=== PATIENT | female | born 1975 | race American Indian/Alaskan Native ===

== ENCOUNTER 2016-11-18 16:26 | Emergency (ER) | payer SELFPAY ==
[2016-11-18 17:47] LABS: Anion Gap 20 mmol/L; Blood Urea Nitrogen 8 mg/dL (7-17); Calcium 9.1 mg/dL (8.4-10.2); Carbon Dioxide 24 mmol/L (22-30); Chloride 102.5 mmol/L (98-107); Glucose 104 mg/dL (65-100); Potassium 4.5 mmol/L (3.6-5.0); Sodium 142 mmol/L (137-145)
[2016-11-18 17:59] LABS: Bilirubin,Urine NEG (Negative); Blood,Urine MOD (Negative); Ketones,Urine NEG (Negative); Leukocyte Esterase,Urine SM (Negative); Mucus,Urine 3+ /HPF; Nitrite,Urine NEG (Negative); Urobilinogen,Urine < 2.0 mg/dL (<2.0)
[2016-11-18 18:05] LABS: Basophils % (Auto) 0.9 % (0.0-1.8); Eosinophils % (Auto) 1.9 % (0.0-4.3); Hematocrit 41.8 % (30.3-42.9); Hemoglobin 13.9 gm/dl (10.1-14.3); Mean Corpuscular HGB Conc 33 % (30-34); Mean Corpuscular Hemoglobin 29 pg (28-32); Mean Corpuscular Volume 88 fl (79-97); Platelet Count 268 K/mm3 (140-440); Red Blood Count 4.73 M/mm3 (3.65-5.03); White Blood Count 6.3 K/mm3 (4.5-11.0)
--- NOTE | 2016-11-18 22:58 | Emergency Department Report ---
HPI - General Chief Complaint: Nausea/Vomiting/Diarrhea Time Seen by Provider: 11/18/16 22:10 - HPI HPI: This is a 41 year-old female presents to the emergency department with complaint of feeling dizzy with some [id number] symptoms. The past few days the patient has been having some "cold" symptoms and was concerned and she says that most of the people in her office have been sick. She also says that she had a fever yesterday but has been treating herself with Tylenol and Motrin. However the reason she came in today was because she was driving earlier and felt like she was going to pass out, but never did so. She does not have any past history. She does not have a primary care physician. She denies any headache, vision change, slurred speech, chest pain, shortness of breath. Secondarily, the patient is concerned as she says that she had unprotected sex with a new partner about one month ago. She has some intermittent vaginal discharge but denies any vaginal bleeding. She says that she's been having some mild dysuria and feels like she is not urinating as much as usual. ED Past Medical Hx - Past Medical History Previous Medical History?: No - Surgical History Past Surgical History?: Yes Additional Surgical History: C/S - Social History Smoking Status: Current Every Day Smoker Substance Use Type: Alcohol, Marijuana - Medications Home Medications: Home Medications Medication Instructions Recorded Confirmed Last Taken Type Nitrofurantoin Walker/M-Cryst 100 mg PO Q12HR #14 capsule 11/19/16 Unknown Rx [Macrobid CAP] metroNIDAZOLE [Flagyl TAB] 500 mg PO BID #14 tablet 11/19/16 Unknown Rx ED Review of Systems ROS: Stated complaint: FEVER,DIZZY Other details as noted in HPI Comment: All other systems reviewed and negative Constitutional: fever. denies: weakness Eyes: denies: eye pain, eye discharge, vision change ENT: denies: ear pain, throat pain Respiratory: cough. denies: shortness of breath Cardiovascular: denies: chest pain, palpitations Gastrointestinal: denies: abdominal pain, constipation Genitourinary: dysuria, discharge. denies: hematuria Musculoskeletal: denies: joint swelling, arthralgia Skin: denies: rash, lesions Neurological: denies: headache, numbness Physical Exam - Physical Exam Vital Signs: Vital Signs 11/18/16 11/18/16 11/18/16 16:48 20:22 22:23 Temperature 98.6 F 97.5 F L 97.6 F Pulse Rate 83 86 84 Respiratory 16 20 20 Rate Blood Pressure 121/69 134/92 Blood Pressure 119/77 [Left] O2 Sat by Pulse 98 99 99 Oximetry Physical Exam: GENERAL: The patient is well-developed well-nourished. HENT: Normocephalic. Atraumatic. Patient has moist mucous membranes. Oropharynx is clear without tonsillar hypertrophy, erythema or exudates. EYES: Extraocular motions are intact. Pupils equal reactive to light bilaterally. No nystagmus. NECK: Supple. Trachea is midline. CHEST/LUNGS: Clear to auscultation. No cough heard during examination. No tachypnea or accessory muscle use. There is no respiratory distress noted. HEART/CARDIOVASCULAR: Regular. There is no tachycardia. There is no gallop rub or murmur. ABDOMEN: Abdomen is soft, nontender. Patient has normal bowel sounds. There is no abdominal distention. SKIN: Skin is warm and dry. NEURO: The patient is awake, alert, and oriented. The patient is cooperative. The patient has no focal neurologic deficits. The patient has normal speech and gait. MUSCULOSKELETAL: There is no tenderness or deformity. There is no limitation range of motion. There is no evidence of acute injury. : There is a small amount of thin white malodorous discharge seen in the vaginal vault. ED Course Vital Signs 11/18/16 11/18/16 11/18/16 16:48 20:22 22:23 Temperature 98.6 F 97.5 F L 97.6 F Pulse Rate 83 86 84 Respiratory 16 20 20 Rate Blood Pressure 121/69 134/92 Blood Pressure 119/77 [Left] O2 Sat by Pulse 98 99 99 Oximetry ED Medical Decision Making - Lab Data Result diagrams: 11/18/16 17:07 11/18/16 17:07 - EKG Data -: EKG Interpreted by Me EKG shows normal: sinus rhythm, axis, intervals, QRS complexes, ST-T waves Rate: normal - EKG Data When compared to previous EKG there are: previous EKG unavailable Interpretation: normal EKG - Medical Decision Making 41-year-old female presents with multiple different complaints. Her main reason for coming tonight is her dizziness. However she does not have any focal , motor or sensory deficits in her cranial nerves are intact. She says that the dizziness is already improved without any intervention. EKG does not show any signs of ST elevation NE, ischemia or dysrhythmia. Labs are mostly unremarkable. There is a small amount of white blood cells in the urine and she was given a dose of Macrobid and will be treated as a mild urinary tract infection. She complained of some vaginal discharge show a wet prep was done that was positive for bacterial vaginosis and the patient will go on a 1 week course of Flagyl. She understands the bad side effect with alcohol consumption and Flagyl. If her gonorrhea and chlamydia is positive she'll be contacted and started on another medication. Vital signs stable throughout her ED course including being afebrile. She was given referrals for primary care. She will return to the ER with any worsening of her symptoms or any acute distress. - Differential Diagnosis BV, gonorrhea, Chlamydia, orthostatic hypotension, vasovagal, hypothyroidis Critical Care Time: No Critical care attestation.: If time is entered above; I have spent that time in minutes in the direct care of this critically ill patient, excluding procedure time. ED Disposition Clinical Impression: Dizziness, Bacterial vaginosis UTI (urinary tract infection) Qualifiers: Urinary tract infection type: acute cystitis Hematuria presence: without hematuria Qualified Code(s): N30.00 - Acute cystitis without hematuria Disposition: - TO HOME OR SELFCARE Is pt being admited?: No Condition: Stable Instructions: Bacterial Vaginosis (ED), Urinary Tract Infection in Women (ED), Near Syncope (ED), Dizziness (ED) Additional Instructions: These follow-up with a primary care physician in the next few days. Return to the emergency Department with any worsening of her symptoms or any acute distress. The medication that you are being treated with for bacterial vaginosis, Flagyl/ metronidazole, has a very very bad reaction if mixed with alcohol and no alcohol should be consumed for up to 2 days after finishing this medication otherwise you can expect to have a significant amount of nausea, vomiting and abdominal pain. Prescriptions: metroNIDAZOLE [Flagyl TAB] 500 mg PO BID #14 tablet Nitrofurantoin Walker/M-Cryst [Macrobid CAP] 100 mg PO Q12HR #14 capsule Referrals: PRIMARY CARE, [Primary Care Provider] - 3-5 Days SATNAM LUGO MD [Staff Physician] - 3-5 Days [facility] [Outside] - 3-5 Days Forms: STI Treatment and Prevention, Work/School Release Form(ED) Time of Disposition: 00:52
[2016-11-18] MEDS ORDERED: MACROBID PO ONE (23:07)
[2016-11-19] MEDS ORDERED: FLAGYL PO ONE (00:49)
[2016-11-19 00:50] VITALS: BP 118/83
== END 2016-11-19 01:12 | disposition home or self-care (01) ==
LOC: ED 16:26
DX: N39.0 Urinary tract infection, site not specified (principal); N76.0 Acute vaginitis; F17.210 Nicotine dependence, cigarettes, uncomplicated; F12.10 Cannabis abuse, uncomplicated
CPT/HCPCS: 36415; 80048; 81001; 84443; 84703; 85025; 87210; 87591; 93005; 93010; 99284